=== PATIENT | male | born 1980 | race Caucasian/White ===

== ENCOUNTER 2021-05-04 20:22 | Emergency (ER) | payer OTHER ==
[~2021-05-04] VITALS: Ht 165.1 cm; Wt 63.5 kg
--- NOTE | 2021-05-04 20:44 | NUR ---
NO BEDS AVAILABLE IN THE ER. HALLWAY OCUPPIED BY OTHER PATIENT. PATIENT OUTSIDE WAITING WITH RESCUE AND [employer].
[2021-05-04] MEDS ORDERED: HALOPERIDOL LACTATE 5 MG/1 ML VIAL IM ONE (21:30)
[2021-05-04] MEDS ORDERED: LIDOCAINE 2% (UROJET) 10 ML JELLY MM ONE (21:30)
[2021-05-04] MEDS ORDERED: diphenhydrAMINE 50 MG/1 ML VIAL IM ONE (21:30)
[2021-05-04] MEDS ORDERED: HALOPERIDOL LACTATE 5 MG/1 ML VIAL ONE (21:55)
[2021-05-04] MEDS ORDERED: diphenhydrAMINE 50 MG/1 ML VIAL ONE (21:55)
--- NOTE | 2021-05-04 21:57 | NUR ---
PATIENT PLACED IN ROOM 2A
[2021-05-04] MEDS ORDERED: LORAZEPAM 2 MG/1 ML VIAL IM ONE (22:00)
[2021-05-04] MEDS ORDERED: LORAZEPAM 2 MG/1 ML VIAL ONE (22:07)
[2021-05-04 22:15] LABS: MEAN CORPUSCULAR HEMOGLOBIN 27.8 uug (23.8-33.4); MEAN CORPUSCULAR VOLUME 83.7 fL (73.0-96.2); PLATELET COUNT (AUTO) 559 K/uL (152-348)
[2021-05-04 22:21] LABS: CARBON DIOXIDE 25 mmol/L (21-32); CHLORIDE 103 mmol/L (98-107); ETHANOL < 3 MG/DL (0-0); GLUCOSE 116 mg/dL (74-106); POTASSIUM 4.5 mmol/L (3.5-5.1); UREA NITROGEN, BLOOD 14 mg/dL (7-18)
[2021-05-04 22:24] LABS: *BILIRUBIN,URIN NEGATIVE (NEGATIVE); *BLOOD, URINE NEGATIVE (NEGATIVE); *CLARITY,URINE CLEAR (CLEAR); *COLOR,URINE YELLOW (YELLOW); *KETONES,URINE NEGATIVE (NEGATIVE); *UROBILINOGEN,URINE 0.2 E.U./dl (NORMAL); LEUKOCYTE ESTERASE ,URINE NEGATIVE (NEGATIVE); NITRITE, URINE NEGATIVE (NEGATIVE); UGLUCOSE NEGATIVE (NEGATIVE)
[2021-05-04 22:32] LABS: THYROID STIMULATING HORMONE 0.856 mIU/mL (0.358-3.740)
[2021-05-04 22:34] LABS: ALANINE AMINOTRANSFERASE 50 U/L (16-63); ALKALINE PHOSPHATASE 87 U/L (50-136); ASPARTATE AMINOTRANSFERASE 47 U/L (15-37); BILIRUBIN,DIRECT 0.1 mg/dL (0.0-0.2); BILIRUBIN,TOTAL 0.3 mg/dL (0.2-1.0); TOTAL PROTEIN, SERUM 8.4 g/dL (6.4-8.2)
[2021-05-04 22:38] LABS: ACETAMINOPHEN < 2.0 ug/mL (10-30)
[2021-05-04 22:38] LABS: *AMPHETAMINE, URINE POSITIVE (NEGATIVE); *CANNABINOID, URINE NEGATIVE (NEGATIVE); *COCCAINE, URINE NEGATIVE (NEGATIVE); *OPIATE, URINE NEGATIVE (NEGATIVE); *PHENCYCLIDINE SCREEN,URINE NEGATIVE (NEGATIVE)
--- NOTE | 2021-05-04 22:42 | NUR ---
XRAY AT BEDSIDE.
--- NOTE | 2021-05-04 22:57 | NUR ---
PT TAKEN TO CT.
--- NOTE | 2021-05-04 23:11 | NUR ---
PT RETURNED FROM CT, STABLE CONDITION.
[2021-05-04] MEDS ORDERED: OLAN5TAB3 PO (23:17)
[2021-05-05 00:53] VITALS: BP 128/85
--- NOTE | 2021-05-05 00:53 | NUR ---
Patient discharged to home in stable condition via [facility]. Written and verbal after care instructions given. Patient verbalizes understanding of instructions. Stressed follow up or return to ER for worsening s/s.
== END 2021-05-05 00:54 | disposition home or self-care (01) ==
LOC: ER 20:22
DX: F15.121 Other stimulant abuse with intoxication delirium (principal); Z20.822 Contact with and (suspected) exposure to COVID-19; R00.0 Tachycardia, unspecified
CPT/HCPCS: 36415; 70450; 71045; 80048; 80076; 80178; 80299; 80307; 80320; 81003; 84443; 85025; 87426; 93005; 96372 ×2; 99291; J1200; J1630; J2060; 70030-TC; A4663; G0480